=== PATIENT | female | born 2000 | race American Indian/Alaskan Native ===

== ENCOUNTER 2019-03-15 11:47 | Emergency (ER) | payer SELFPAY ==
[2019-03-15 11:56] VITALS: BP 121/84
--- NOTE | 2019-03-15 11:56 | Emergency Department Report ---
Blank Doc - Documentation Documentation: This is a 19-year-old female that presents with right side neck pain after doing her hair. Denies any injuries. This initial assessment/diagnostic orders/clinical plan/treatment(s) is/are subject to change based on patient's health status, clinical progression and re-assessment by fellow clinical providers in the ED. Further treatment and workup at subsequent clinical providers discretion. Patient/guardians urged not to elope from the ED as their condition may be serious if not clinically assessed and managed. Initial orders include: 1- Patient sent to [facility] for further evaluation and treatment.
[2019-03-15] MEDS ORDERED: DECADRON IM ONE (13:07)
[2019-03-15] MEDS ORDERED: TORADOL IM ONE (13:07)
[2019-03-15] MEDS ORDERED: FLEXERIL PO ONE (13:07)
--- NOTE | 2019-03-15 13:09 | Emergency Department Report ---
ED Back Pain/Injury HPI - General Chief Complaint: Neck Pain/Injury Stated Complaint: RT SIDE NECK PAIN Time Seen by Provider: 03/15/19 11:55 Source: patient Limitations: No Limitations - History of Present Illness Initial Comments: pT is a 19-year-old female comes to the ER after brushing her hair and getting a crick in her neck. No signs are stable. Patient is neurologically intact. She's had no trauma. No fall. She did not wake up with the pain. She's had no recent upper respiratory infection. Patient states that she just was brushing her hair and she turned her neck funny and then her neck when the spasm. -: Sudden Similar Symptoms Previously: No Place: home Consistency: constant Worsens With: movement Context: other Associated Symptoms: denies other symptoms - Related Data Previous Rx's Medication Instructions Recorded Last Taken Type Cyclobenzaprine [Flexeril] 10 mg PO TID PRN #10 tablet 03/15/19 Unknown Rx Naproxen [Naprosyn] 500 mg PO BID PRN #20 tablet 03/15/19 Unknown Rx Allergies Allergy/AdvReac Type Severity Reaction Status Date / Time No Known Allergies Allergy Unverified 03/15/19 11:55 ED Review of Systems ROS: Stated complaint: RT SIDE NECK PAIN Other details as noted in HPI Comment: All other systems reviewed and negative Constitutional: denies: chills, fever Eyes: denies: eye pain ENT: denies: ear pain Respiratory: denies: orthopnea Cardiovascular: denies: chest pain Endocrine: denies: flushing Gastrointestinal: denies: abdominal pain Genitourinary: denies: dysuria Musculoskeletal: denies: back pain Skin: denies: lesions Neurological: denies: headache, weakness Psychiatric: denies: depression Hematological/Lymphatic: denies: easy bleeding ED Past Medical Hx - Past Medical History Medical history: no medical history ED Back Pain Physical Exam - Exam General: Vital signs noted. No distress. Alert and acting appropriately. SPASM R TRAP ON EXAM PAIN WITH MOVEMENT OF NECK A/O X 4 MAEW NO FEVER S1S2 LUNGS CTA ABD SNT AMBULATORY Back/Abdomen: No Abdominal Tenderness, No Perithoracic Tenderness, No Perilumbar Tenderness, No Sacroiliac Tenderness, No Flank Tenderness, No Straight Leg Raise Pain Neuro: Yes Normal Sensation, Yes Normal DTR's, Yes Normal Gait, No Motor Weakness ED Course Vital Signs 03/15/19 11:55 Temperature 98.4 F Pulse Rate 80 Respiratory 16 Rate Blood Pressure 121/84 O2 Sat by Pulse 100 Oximetry ED Medical Decision Making - Medical Decision Making NO TRAUMA NO FEVER NEURO INTACT TRAP SPAMS ON EXAM P BRUSHING HAIR MEDICATED IN ED WITH RELIEF DC HOME WITH RX AND PCP FOLLOW UP Vital Signs 03/15/19 11:55 Temperature 98.4 F Pulse Rate 80 Respiratory 16 Rate Blood Pressure 121/84 O2 Sat by Pulse 100 Oximetry Critical care attestation.: If time is entered above; I have spent that time in minutes in the direct care of this critically ill patient, excluding procedure time. ED Disposition Clinical Impression: Neck muscle spasm Disposition: DC-01 TO HOME OR SELFCARE Is pt being admited?: No Does the pt Need Aspirin: No Condition: Stable Instructions: Spasmodic Torticollis (ED), Muscle Spasm (ED) Additional Instructions: DIET TOLERATED MEDS ORDERED TODAY IN ER FOLLOW INSTRUCTIONS ON THE BOTTLE FOLLOW UP PCP WITHIN 48 HOURS TO ENSURE YOU ARE GETTING BETTER ACTIVITY TOLERATED MOTRIN OR TYLENOL FOR PAIN OR FEVER RETURN TO THE ER FOR WORSENING SYMPTOMS NOT RELIEVED BY YOUR MEDICATIONS. Prescriptions: Cyclobenzaprine [Flexeril] 10 mg PO TID PRN #10 tablet PRN Reason: Muscle Spasm Naproxen [Naprosyn] 500 mg PO BID PRN #20 tablet PRN Reason: Pain Referrals: SVETA THOMPSON MD [Primary Care Provider] - 3-5 Days Time of Disposition: 13:08
== END 2019-03-15 14:00 | disposition home or self-care (01) ==
LOC: ED 11:47
DX: M62.838 Other muscle spasm (principal)
CPT/HCPCS: 96372; 99282; J1100; J1885